=== PATIENT | female | born 1980 | race Caucasian/White ===

== ENCOUNTER 2020-07-11 23:08 | Inpatient (IN) | payer OTHER, SELFPAY ==
--- NOTE | ~2020-07-11 | US_ITS ---
EXAMINATION: US ABDOMEN COMPLETE CLINICAL INFORMATION: Right upper quadrant and right flank pain. COMPARISON: 09/04/2016 TECHNIQUE: Real-time imaging of the abdominal viscera. FINDINGS: PANCREAS: The visualized proximal portion of the pancreas is unremarkable. The distal portion is obscured secondary to overlying bowel gas. ABDOMINAL AORTA: The proximal, mid, and distal segments are normal in caliber. INFERIOR VENA CAVA: Visualized portions are normal. LIVER: The liver is normal in size. The liver contour is normal. Parenchymal echogenicity is normal. No focal hepatic lesion. There is no intrahepatic biliary duct dilatation seen. GALLBLADDER: The gallbladder is physiologically distended without evidence of stones, sludge, polyps, wall thickening or pericholecystic fluid. COMMON BILE DUCT: Normal in caliber measuring 0.4 cm in diameter. RIGHT KIDNEY: No hydronephrosis. No renal calculi or focal parenchymal lesions. The kidney measures 12.4 cm in maximum dimension. LEFT KIDNEY: No hydronephrosis. There are mid and lower pole calculi measuring up to 0.5 cm each. The kidney measures 12.8 cm in maximum dimension. SPLEEN: Normal. The spleen measures 10.6 cm in maximum dimension. FREE FLUID: None. US/US abdomen complete IMPRESSION: No acute findings identified. Left renal calculi without hydronephrosis.
[2020-07-11 23:43] VITALS: BP 121/41; PULSE 126; RESP 18; TEMP 38.1; O2SAT 100; BMI 24.5
[2020-07-12] VITALS (8 sets, daily range): BP systolic 93–117; BP diastolic 45–68; PULSE 56–84; RESP 16–18; TEMP 35.9–37.3; O2SAT 97–100
[2020-07-12 00:32] LABS: Glucose Urine UA NEG (NEG); Leukocyte Esterase Urine TRACE (NEG); Nitrite Urine POS (NEG); Urine Blood 3+ (NEG); Urine Ketones >=80 MG/DL (NEG); Urine Protein TRACE MG/DL (NEG-TRACE)
[2020-07-12 00:45] LABS: Appearance Urine HAZY; Color Urine YELLOW
[2020-07-12 00:51] LABS: Bacteria Urine 4+ /LPF; Mucus Urine 1+ /LPF; Squamous Epithelial Cell Urine 1+ /LPF
[2020-07-12 00:52] LABS: UPreg QC Valid YES; Urine Pregnancy NEGATIVE (NEGATIVE)
--- NOTE | 2020-07-12 01:57 | ED.ABDPAIN ---
HPI - Abdominal Pain General Chief Complaint: Abdominal Pain Stated Complaint: Abdominal pain Time Seen by Provider: 07/12/20 01:20 Source: patient Mode of arrival: ambulatory Limitations: no limitations History of Present Illness MD elicited complaint: abdominal pain and flank pain Pertinent past history: past UTI Onset (ago): day(s) (1) Pain Consistency: constant Location: RUQ and R flank Severity: moderate Quality: aching and dull Radiation: none Migration to: no migration Exacerbating factors: movement Relieving factors: nothing Associated symptoms: nausea, vomiting, fever and chills Related Data Allergies Allergy/AdvReac Type Severity Reaction Status Date / Time No Known Allergies Allergy Verified 07/11/20 23:42 [No Known Allergies*] Review of Systems Review of Systems Constitutional : No Weight loss, pos Fever, pos Chills ENT/Mouth : No sore throat, No Rhinorrhea Eyes: No Swelling, No Redness Cardiovascular : No Chest Pain, No SOB, NoEdema Respiratory : No Cough, No Sputum, No Wheezing Gastrointestinal : Positive Nausea, Positive Vomiting, no Diarrhea, positive abdominal Pain, No Hematochezia, No Melena Genitourinary : No Dysuria, No Urinary Frequency, No Hematuria, No Urgency Musculoskeletal : No joint pain, No Myalgias, No Joint Swelling Skin : No Skin Lesions, No rash Neuro : No Weakness, No Numbness, No Dizziness, No Headache Psych : No Anxiety/Panic, No Depression Heme/Lymph: No Bruising, No Lymphadenopathy Endocrine : No Polyuria, No Polydipsia All other systems reviewed and are negative. Physical Exam Vital Signs: Vital Signs: Last Vital Signs Temp 100.5 F H 07/11/20 23:43 Pulse 126 H 07/11/20 23:43 Resp 18 07/11/20 23:43 BP 121/41 L 07/11/20 23:43 Pulse Ox 100 07/11/20 23:43 Body Mass Index 24.5 Appearance: Alert. Oriented X3. Mild acute distress. Anxious Eyes: Pupils equal, round and reactive to light. ENT: Pharynx normal. Neck: Normal inspection. Neck supple. CVS: tachycardic, heart rate and rhythm. Pulses normal. Respiratory: No respiratory distress. Breath sounds normal. Abdomen: Soft and mild RUQ ttp no rebound or guarding Back: severe R CVA ttp Skin: Skin warm and dry. Normal skin color. Normal skin turgor. Extremities: No lower extremity edema. No calf ttp Neuro: Oriented X 3. No motor deficit. No sensory deficit. Course Course Course Narrative: patient with pyelonephritis still nauseated no stone, given ceftriaxone - given presentation will admit for further workup, doubt she will be able to tolerate oral antibiotics MDM - Abdominal Pain MDM Narrative Medical decision making narrative: 39 yo female with no sig PMH here with fevers, UTI RUQ and R flank pain at this time will need labs, cultures, US of abdomen for renal colic and biliary colic, IV ceftriaxone and supportive medications, dispo per results and findings, likely pyelonephritis Lab Data Result diagrams: 07/12/20 03:05 07/12/20 03:05 Labs: Lab Results 07/11/20 07/11/20 07/12/20 Range/Units 23:53 23:53 03:05 WBC 17.5 H (4.8-10.8) X10*3/uL RBC 4.65 (4.20-5.50) X10*6/uL Hgb 14.2 (12.0-16.0) g/dl Hct 41.9 (37-47) % MCV 90.1 (80-98) fL MCH 30.5 (27.0-33.0) pg MCHC 33.9 (31.0-35.0) g/dl RDW 12.5 (11.0-16.0) % Plt Count 231 (160-400) X10*3/uL MPV 9.7 (9.4-12.3) fL Immature Gran % (Auto) 0.5 H (0.0-0.4) % Neut % (Auto) 81.5 H (45-73) % Lymph % (Auto) 10.5 L (20-40) % [place] % (Auto) 7.3 (2-11) % Eos % (Auto) 0.1 (0-4) % Baso % (Auto) 0.1 (0-2) % Lymph # (Auto) 1.8 (1.2-4.9) X10*3/uL [place] # (Auto) 1.3 H (0.1-1.2) X10*3/uL Eos # (Auto) 0.0 (0.0-0.4) X10*3/uL Baso # (Auto) 0.0 (0.0-0.2) X10*3/uL Abs Immat Gran (auto) 0.08 H (0.00-0.03) X10*3/uL Absolute Neuts (auto) 14.3 H (2.0-8.3) X10*3/uL Absolute Nucleated RBC 0.000 (0.0-0.012) X10*3/uL Nucleated RBC % (auto) 0.0 (0.0-0.2) /100WBC Hold Blue Top Sodium (135-145) mmol/L Potassium (3.3-5.1) mmol/L Chloride (96-108) mmol/L Carbon Dioxide (22-29) mmol/L Anion Gap (12-20) BUN (9-16) mg/dL Creatinine (0.5-1.4) mg/dL Estim Creat Clear Calc Estimated GFR Random Glucose (60-115) mg/dL Lactic Acid (0.5-2.0) mmol/L Calcium (8.4-10.2) mg/dL Magnesium (1.6-2.6) mg/dL Total Bilirubin (0.0-1.0) mg/dL Direct Bilirubin (0.0-0.5) mg/dL AST (5-31) U/L ALT (0-31) U/L Alkaline Phosphatase (39-117) U/L Total Protein (6.5-8.0) g/dL Albumin (3.5-5.0) g/dL Lipase (8-78) U/L Urine Color YELLOW Urine Appearance HAZY Urine pH 7.0 (5.0-8.0) Ur Specific [place] 1.020 (1.005-1.025) Urine Protein TRACE (NEG-TRACE) MG/DL Urine Glucose (UA) NEG (NEG) MG/DL Urine Ketones >=80 (NEG) MG/DL Urine Blood 3+ H (NEG) Urine Nitrite POS H (NEG) Ur Leukocyte Esterase TRACE H (NEG) Urine RBC 10-14 H (0) /HPF Urine WBC 10-14 H (0-4) /HPF Ur Squamous Epith Cells 1+ /LPF Urine Bacteria 4+ /LPF Urine Mucus 1+ /LPF Urine Test NEGATIVE (NEGATIVE) COVID-19 ([facility]ASH) (Negative) COVID-19 Clin Com 07/12/20 07/12/20 07/12/20 Range/Units 03:05 03:05 03:05 WBC (4.8-10.8) X10*3/uL RBC (4.20-5.50) X10*6/uL Hgb (12.0-16.0) g/dl Hct (37-47) % MCV (80-98) fL MCH (27.0-33.0) pg MCHC (31.0-35.0) g/dl RDW (11.0-16.0) % Plt Count (160-400) X10*3/uL MPV (9.4-12.3) fL Immature Gran % (Auto) (0.0-0.4) % Neut % (Auto) (45-73) % Lymph % (Auto) (20-40) % [place] % (Auto) (2-11) % Eos % (Auto) (0-4) % Baso % (Auto) (0-2) % Lymph # (Auto) (1.2-4.9) X10*3/uL [place] # (Auto) (0.1-1.2) X10*3/uL Eos # (Auto) (0.0-0.4) X10*3/uL Baso # (Auto) (0.0-0.2) X10*3/uL Abs Immat Gran (auto) (0.00-0.03) X10*3/uL Absolute Neuts (auto) (2.0-8.3) X10*3/uL Absolute Nucleated RBC (0.0-0.012) X10*3/uL Nucleated RBC % (auto) (0.0-0.2) /100WBC Hold Blue Top SEE NOTE Sodium 138 (135-145) mmol/L Potassium 3.3 (3.3-5.1) mmol/L Chloride 102 (96-108) mmol/L Carbon Dioxide 24 (22-29) mmol/L Anion Gap 15 (12-20) BUN 10 (9-16) mg/dL Creatinine 0.72 (0.5-1.4) mg/dL Estim Creat Clear Calc 92.3 Estimated GFR > 60 Random Glucose 114 (60-115) mg/dL Lactic Acid 0.8 (0.5-2.0) mmol/L Calcium 9.4 (8.4-10.2) mg/dL Magnesium (1.6-2.6) mg/dL Total Bilirubin (0.0-1.0) mg/dL Direct Bilirubin (0.0-0.5) mg/dL AST (5-31) U/L ALT (0-31) U/L Alkaline Phosphatase (39-117) U/L Total Protein (6.5-8.0) g/dL Albumin (3.5-5.0) g/dL Lipase (8-78) U/L Urine Color Urine Appearance Urine pH (5.0-8.0) Ur Specific [place] (1.005-1.025) Urine Protein (NEG-TRACE) MG/DL Urine Glucose (UA) (NEG) MG/DL Urine Ketones (NEG) MG/DL Urine Blood (NEG) Urine Nitrite (NEG) Ur Leukocyte Esterase (NEG) Urine RBC (0) /HPF Urine WBC (0-4) /HPF Ur Squamous Epith Cells /LPF Urine Bacteria /LPF Urine Mucus /LPF Urine Test (NEGATIVE) COVID-19 ([facility]) (Negative) COVID-19 Clin Com 07/12/20 07/12/20 07/12/20 Range/Units 03:05 03:05 03:06 WBC (4.8-10.8) X10*3/uL RBC (4.20-5.50) X10*6/uL Hgb (12.0-16.0) g/dl Hct (37-47) % MCV (80-98) fL MCH (27.0-33.0) pg MCHC (31.0-35.0) g/dl RDW (11.0-16.0) % Plt Count (160-400) X10*3/uL MPV (9.4-12.3) fL Immature Gran % (Auto) (0.0-0.4) % Neut % (Auto) (45-73) % Lymph % (Auto) (20-40) % [place] % (Auto) (2-11) % Eos % (Auto) (0-4) % Baso % (Auto) (0-2) % Lymph # (Auto) (1.2-4.9) X10*3/uL [place] # (Auto) (0.1-1.2) X10*3/uL Eos # (Auto) (0.0-0.4) X10*3/uL Baso # (Auto) (0.0-0.2) X10*3/uL Abs Immat Gran (auto) (0.00-0.03) X10*3/uL Absolute Neuts (auto) (2.0-8.3) X10*3/uL Absolute Nucleated RBC (0.0-0.012) X10*3/uL Nucleated RBC % (auto) (0.0-0.2) /100WBC Hold Blue Top Sodium (135-145) mmol/L Potassium (3.3-5.1) mmol/L Chloride (96-108) mmol/L Carbon Dioxide (22-29) mmol/L Anion Gap (12-20) BUN (9-16) mg/dL Creatinine (0.5-1.4) mg/dL Estim Creat Clear Calc Estimated GFR Random Glucose (60-115) mg/dL Lactic Acid (0.5-2.0) mmol/L Calcium (8.4-10.2) mg/dL Magnesium 2.1 (1.6-2.6) mg/dL Total Bilirubin 0.8 (0.0-1.0) mg/dL Direct Bilirubin 0.3 (0.0-0.5) mg/dL AST 13 (5-31) U/L ALT 11 (0-31) U/L Alkaline Phosphatase 94 (39-117) U/L Total Protein 8.1 H (6.5-8.0) g/dL Albumin 4.8 (3.5-5.0) g/dL Lipase 7 L (8-78) U/L Urine Color Urine Appearance Urine pH (5.0-8.0) Ur Specific [place] (1.005-1.025) Urine Protein (NEG-TRACE) MG/DL Urine Glucose (UA) (NEG) MG/DL Urine Ketones (NEG) MG/DL Urine Blood (NEG) Urine Nitrite (NEG) Ur Leukocyte Esterase (NEG) Urine RBC (0) /HPF Urine WBC (0-4) /HPF Ur Squamous Epith Cells /LPF Urine Bacteria /LPF Urine Mucus /LPF Urine Test (NEGATIVE) COVID-19 ([facility]) Negative (Negative) COVID-19 Clin Com See Note Discharge Plan Discharge Clinical Impression: Pyelonephritis, Fever, Leukocytosis, Nausea & vomiting Patient Disposition: Ad[facility] As [facility] Past Medical History Attestation statement: The following information was validated with the patient. Medical History (Updated 07/12/20 @ 04:17 by Rika Rose DO) No active medical problems Social History Social History (Updated 07/12/20 @ 02:40 by Rika Rose DO) Smoking Status: Unknown if ever smoked Use of substances other than those prescribed or required for medical reasons: No Advance Directives: No
[2020-07-12 03:14] LABS: MANUAL DIFF FLAG NO
[2020-07-12 03:15] LABS: Basophils Percent Auto 0.1 % (0-2); Eosinophils Percent Auto 0.1 % (0-4); Hematocrit 41.9 % (37-47); Hemoglobin 14.2 g/dl (12.0-16.0); Imm Gran Abs Auto 0.08 X10*3/uL (0.00-0.03); Imm Gran Pct Auto 0.5 % (0.0-0.4); Lymphocytes Absolute Auto 1.8 X10*3/uL (1.2-4.9); Lymphocytes Percent Auto 10.5 % (20-40); Mean Corpuscular HGB Conc 33.9 g/dl (31.0-35.0); Mean Corpuscular Hemoglobin 30.5 pg (27.0-33.0); Mean Corpuscular Volume 90.1 fL (80-98); Mean Platelet Volume 9.7 fL (9.4-12.3); Monocytes Absolute Auto 1.3 X10*3/uL (0.1-1.2); Monocytes Percent Auto 7.3 % (2-11); Neutrophils Absolute Auto 14.3 X10*3/uL (2.0-8.3); Neutrophils Percent Auto 81.5 % (45-73); Platelet Count 231 X10*3/uL (160-400); Red Blood Count 4.65 X10*6/uL (4.20-5.50); Red Cell Distribution Width 12.5 % (11.0-16.0); White Blood Count 17.5 X10*3/uL (4.8-10.8)
[2020-07-12] MEDS: cefTRIAXone sodium 1 GM in 0.9 % Sodium Chloride 50 ML IV ×2 (03:15→20:57)
[2020-07-12] MEDS: Ketorolac Tromethamine 30 MG/ML VIAL IVPUSH (03:16)
[2020-07-12] MEDS: ondansetron HCL 4 MG/2 ML VIAL IVPUSH ×2 (03:16→19:37)
[2020-07-12] MEDS: Acetaminophen 325 MG TABLET 650 MG PO ×3 (03:17→20:56)
[2020-07-12] MEDS: 0.9 % Sodium Chloride 1,000 ML 999 ML IVCONT ×2 (03:18)
--- NOTE | 2020-07-12 03:31 | PC.NURSE ---
PT RETURNS FROM U/S. PT IN NAD. PT AWAKE, RESPIRATIONS EASY, N/L. SKIN W/D. IV EST TO RAC, LABS DRAWN TO LAB. PT MEDICATED PER EMAR FOR PAIN AND NAUSEA. PT AWAITING PENDING ORDERS. WILL CONTINUE TO MONITOR PT.
[2020-07-12 03:34] LABS: Lactic Acid 0.8 mmol/L (0.5-2.0)
[2020-07-12 03:39] LABS: Alanine Aminotransferase 11 U/L (0-31); Albumin Level 4.8 g/dL (3.5-5.0); Alkaline Phosphatase 94 U/L (39-117); Anion Gap 15 (12-20); Aspartate Amino Transferase 13 U/L (5-31); Bilirubin Direct 0.3 mg/dL (0.0-0.5); Bilirubin Total 0.8 mg/dL (0.0-1.0); Blood Urea Nitrogen 10 mg/dL (9-16); Calcium 9.4 mg/dL (8.4-10.2); Carbon Dioxide 24 mmol/L (22-29); Chloride 102 mmol/L (96-108); Creatinine Clr Calc Pharmacy 92.3; Estimated Glomerular Filt Rate > 60; Glucose Random 114 mg/dL (60-115); Lipase 7 U/L (8-78); Magnesium 2.1 mg/dL (1.6-2.6); Potassium 3.3 mmol/L (3.3-5.1); Sodium 138 mmol/L (135-145); Total Protein 8.1 g/dL (6.5-8.0)
[2020-07-12 04:10] LABS: COVID-19 Test Negative (Negative); IDNOW Serial# 9DD0AD1C
--- NOTE | 2020-07-12 04:55 | PM.IMHP ---
History of Present Illness Date of Service: 07/12/20 Chief Complaint: Pain This is a 39-year-old female with past medical history of gestational diabetes presents to the hospital with complaints of right-sided flank and abdominal pain. Patient reports that the pain is on her left side radiating to the back, associated with chills and fever, nausea, vomiting, urinary frequency, urgency, dysuria. The pain started 2 days ago and have worsened. Pain is 7/10, worse with movement and deep inspiration.. Also experiencing dizziness, and low appetite. On arrival to the ED hemodynamically stable with a temperature of a 100.5?, pulse rate of 126, respiratory rate of 18, blood pressure 121/41, satting 100% on room air. Labs are significant for WBC count of 17.5, UA that is positive for nitrites, leukocyte Estrace, WBC, Abdominal ultrasound demonstrating left renal calculi without hydronephrosis Patient will be admitted for further management Review of Systems Review of Systems: Yes all other systems are reviewed and are negative [facility] Medical History (Updated 07/12/20 @ 05:00 by Cody Palafox MD) Gestational diabetes No active medical problems Social History Smoking Status: Unknown if ever smoked Smoked in Last 30 Days: No Use of substances other than those prescribed or required for medical reasons: No Advance Directives: No Meds Allergies Allergy/AdvReac Type Severity Reaction Status Date / Time No Known Allergies Allergy Verified 07/11/20 23:42 [No Known Allergies*] Home Medications Medication Instructions Recorded Confirmed Last Taken Type No Known Home Meds 07/12/20 07/12/20 Unknown History Physical Exam Vital Signs and Narrative: Vital Signs: Last Vital Signs Temp 99.1 F 07/12/20 04:18 Pulse 70 07/12/20 04:33 Resp 18 07/12/20 04:18 BP 108/59 L 07/12/20 04:33 Pulse Ox 99 07/12/20 04:33 Body Mass Index 24.5 Const: General: cooperative and no acute distress Orientation/consciousness: patient oriented x3 Eyes: General: appearance normal, both eyes and all related structures Resp: Effort & Inspection: normal respiratory effort and able to speak in complete sentences Cardio: Rate: regular rate Rhythm: regular rhythm GI: Palpation (GI): Soft to palpation Auscultation: normal bowel sounds : Other: Right-sided CVA tenderness Skin: General skin exam: no rashes or lesions noted Neuro: General: patient oriented x3 Cognition (Neuro): normal cognition Extrem: General: Yes normal to inspection and Yes no pedal edema Results Labs CBC and Chem 7: 07/12/20 03:05 07/12/20 03:05 Labs: Laboratory Results - last 24 hr 07/11/20 07/11/20 07/12/20 23:53 23:53 03:05 MCV 90.1 MCH 30.5 MCHC 33.9 RDW 12.5 Plt Count 231 MPV 9.7 Immature Gran % (Auto) 0.5 H Neut % (Auto) 81.5 H Lymph % (Auto) 10.5 L [place] % (Auto) 7.3 Eos % (Auto) 0.1 Baso % (Auto) 0.1 Lymph # (Auto) 1.8 [place] # (Auto) 1.3 H Eos # (Auto) 0.0 Baso # (Auto) 0.0 Abs Immat Gran (auto) 0.08 H Absolute Neuts (auto) 14.3 H Absolute Nucleated RBC 0.000 Nucleated RBC % (auto) 0.0 Hold Blue Top Anion Gap Estim Creat Clear Calc Estimated GFR Random Glucose Lactic Acid Calcium Magnesium Total Bilirubin Direct Bilirubin AST ALT Alkaline Phosphatase Total Protein Albumin Lipase Urine Color YELLOW Urine Appearance HAZY Urine pH 7.0 Ur Specific [place] 1.020 Urine Protein TRACE Urine Glucose (UA) NEG Urine Ketones >=80 Urine Blood 3+ H Urine Nitrite POS H Ur Leukocyte Esterase TRACE H Urine RBC 10-14 H Urine WBC 10-14 H Ur Squamous Epith Cells 1+ Urine Bacteria 4+ Urine Mucus 1+ Urine Test NEGATIVE COVID-19 (KASH) COVID-19 Clin Com 07/12/20 07/12/20 07/12/20 03:05 03:05 03:05 MCV MCH MCHC RDW Plt Count MPV Immature Gran % (Auto) Neut % (Auto) Lymph % (Auto) [place] % (Auto) Eos % (Auto) Baso % (Auto) Lymph # (Auto) [place] # (Auto) Eos # (Auto) Baso # (Auto) Abs Immat Gran (auto) Absolute Neuts (auto) Absolute Nucleated RBC Nucleated RBC % (auto) Hold Blue Top SEE NOTE Anion Gap 15 Estim Creat Clear Calc 92.3 Estimated GFR > 60 Random Glucose 114 Lactic Acid 0.8 Calcium 9.4 Magnesium Total Bilirubin Direct Bilirubin AST ALT Alkaline Phosphatase Total Protein Albumin Lipase Urine Color Urine Appearance Urine pH Ur Specific [place] Urine Protein Urine Glucose (UA) Urine Ketones Urine Blood Urine Nitrite Ur Leukocyte Esterase Urine RBC Urine WBC Ur Squamous Epith Cells Urine Bacteria Urine Mucus Urine Test COVID-19 (KASH) COVID-19 [employer] Com 07/12/20 07/12/20 07/12/20 03:05 03:05 03:06 MCV MCH MCHC RDW Plt Count MPV Immature Gran % (Auto) Neut % (Auto) Lymph % (Auto) [place] % (Auto) Eos % (Auto) Baso % (Auto) Lymph # (Auto) [place] # (Auto) Eos # (Auto) Baso # (Auto) Abs Immat Gran (auto) Absolute Neuts (auto) Absolute Nucleated RBC Nucleated RBC % (auto) Hold Blue Top Anion Gap Estim Creat Clear Calc Estimated GFR Random Glucose Lactic Acid Calcium Magnesium 2.1 Total Bilirubin 0.8 Direct Bilirubin 0.3 AST 13 ALT 11 Alkaline Phosphatase 94 Total Protein 8.1 H Albumin 4.8 Lipase 7 L Urine Color Urine Appearance Urine pH Ur Specific [place] Urine Protein Urine Glucose (UA) Urine Ketones Urine Blood Urine Nitrite Ur Leukocyte Esterase Urine RBC Urine WBC Ur Squamous Epith Cells Urine Bacteria Urine Mucus Urine Test COVID-19 (KASH) Negative COVID-19 Clin Com See Note Imaging Radiologist's Impressions: Impressions Abdomen Ultrasound 07/12/20 02:03 IMPRESSION: No acute findings identified. Left renal calculi without hydronephrosis. Assessment and Plan (1) Sepsis: Status: Acute (2) Pyelonephritis: Status: Acute (3) Nausea & vomiting: Qualifiers: Vomiting Intractability: intractable Vomiting type: unspecified Qualified Code(s): R11.2 - Nausea with vomiting, unspecified Status: Acute (4) Leukocytosis: Qualifiers: Leukocytosis type: unspecified Qualified Code(s): D72.829 - Elevated white blood cell count, unspecified Status: Acute (5) Fever: Qualifiers: Fever type: unspecified Qualified Code(s): R50.9 - Fever, unspecified Status: Acute (6) UTI (urinary tract infection): Status: Acute 39-year-old female who presents to the hospital with abdominal pain found to have UTI/pyelonephritis # sepsis - secondary to UTI/pyelo - patient has leukocytosis, tachycardic - normal lactic acid, no hypotension - will start on IV antibiotics - OV fluids -follow cultures # UTI/pyelonephritis - UA positive for leukocyte esterase, nitrites, WBC, positive CVA tenderness on the right - started on IV antibiotics - follow cultures # leukocytosis - secondary to above - follow CBC # fever - secondary to above - Tylenol p.r.n. # nausea vomiting - secondary to above - p.r.n. antiemetic - IV fluids DVT prophylaxis: Lovenox
[2020-07-12] MEDS: Lactated Ringers 1,000 ML 100 ML IVCONT ×2 (09:09→17:07)
[2020-07-12] MEDS: oxyCODONE HCl Immed Release 5 MG TABLET PO ×2 (09:10→15:27)
--- NOTE | 2020-07-12 09:49 | MHC.CM.PN ---
PATIENT LIVES WITH HER SON, WHO IS CURRENTLY IN THE CARE OF PATIENT'S MOTHER. PATIENT IS INDEPENDENT WITH ALL ADLS. NO DME OR VNA SERVICES SHE ASSIGNS TWO HCP AGENTS (MOM AND SISTER) COPY IN CHART. PCP IS AT ADULT [facility]IC[facility] AT [facility]. UPDATE MADE TO CM OFFICE. PATIENT'S CAR IS IN THE LOT. SHE IS EXPECTED TO REMAIN INPATIENT FOR 48 HOURS. CASE MANAGEMENT FOLLOWING FOR ANY DISCHARGE PLANS.
--- NOTE | 2020-07-12 11:12 | HO.PM.IMPN ---
Subjective Subjective Date of Service: 07/12/20 Interval History: c/o chills, sweats, R flank pain no prior hx UTI Physical Exam Vital Signs: Vital Signs: Last Vital Signs Temp 96.7 F L 07/12/20 08:55 Pulse 63 07/12/20 08:55 Resp 18 07/12/20 08:55 BP 117/65 07/12/20 08:55 Pulse Ox 98 07/12/20 08:55 Body Mass Index 24.5 Gen: in no acute distress HEENT: sclera anicteric, moist mucus membranes Neck: supple Lungs: clear to auscultation bilaterally Heart: regular rate and rhythm, no murmurs Abd: soft, non-tender, non-distended : R CVA tenderness Ext: no edema Skin: warm/well-perfused Neuro: alert and oriented x3, no focal findings Psych: appropriate affect Objective Data Current Medications Generic Name Dose Route Start Last Admin Trade Name Freq PRN Reason Stop Dose Admin Acetaminophen 650 mg 07/12/20 08:57 07/12/20 09:13 Acetaminophen 325 Mg Tablet PO 650 mg Q6H PRN Administration Pain, Mild (Pain Scale 1-3) Docusate Sodium 100 mg 07/12/20 08:57 Docusate Sodium 100 Mg Capsule PO DAILY PRN Constipation Enoxaparin Sodium 40 mg 07/12/20 08:57 07/12/20 09:14 Enoxaparin Sodium 40 Mg/0.4 Ml Syringe SUBCUT Not Given Q24H TANGELA Lactated Ringer's 1,000 mls @ 100 mls/hr 07/12/20 05:15 07/12/20 09:09 Lr IVCONT 100 mls/hr .Q10H TANGELA Administration Ceftriaxone Sodium 1 gm/ 50 mls @ 100 mls/hr 07/12/20 21:00 Sodium Chloride IV Q24H TANGELA Ondansetron HCl 4 mg 07/12/20 08:57 Ondansetron Hcl 4 Mg/2 Ml Vial IVPUSH Q8H PRN Nausea and Vomiting Oxycodone HCl 5 mg 07/12/20 04:55 07/12/20 09:10 Oxycodone Hcl Immed Release 5 Mg Tablet PO 5 mg Q4H PRN Administration Pain, Severe (Pain Scale 7-10) Sodium Chloride 3 ml 07/12/20 08:57 07/12/20 09:09 0.9 % Sodium Chloride Flush 3 Ml Syringe [facility]USH [facility] CBC & Chem 7: 07/12/20 03:05 07/12/20 03:05 Labs: Laboratory Results - last 24 hr 07/11/20 07/11/20 07/12/20 23:53 23:53 03:05 WBC 17.5 H RBC 4.65 Hgb 14.2 Hct 41.9 MCV 90.1 MCH 30.5 MCHC 33.9 RDW 12.5 Plt Count 231 MPV 9.7 Immature Gran % (Auto) 0.5 H Neut % (Auto) 81.5 H Lymph % (Auto) 10.5 L [place] % (Auto) 7.3 Eos % (Auto) 0.1 Baso % (Auto) 0.1 Lymph # (Auto) 1.8 [place] # (Auto) 1.3 H Eos # (Auto) 0.0 Baso # (Auto) 0.0 Abs Immat Gran (auto) 0.08 H Absolute Neuts (auto) 14.3 H Absolute Nucleated RBC 0.000 Nucleated RBC % (auto) 0.0 Hold Blue Top Sodium Potassium Chloride Carbon Dioxide Anion Gap BUN Creatinine Estim Creat Clear Calc Estimated GFR Random Glucose Lactic Acid Calcium Magnesium Total Bilirubin Direct Bilirubin AST ALT Alkaline Phosphatase Total Protein Albumin Lipase Urine Color YELLOW Urine Appearance HAZY Urine pH 7.0 Ur Specific [place] 1.020 Urine Protein TRACE Urine Glucose (UA) NEG Urine Ketones >=80 Urine Blood 3+ H Urine Nitrite POS H Ur Leukocyte Esterase TRACE H Urine RBC 10-14 H Urine WBC 10-14 H Ur Squamous Epith Cells 1+ Urine Bacteria 4+ Urine Mucus 1+ Urine Test NEGATIVE COVID-19 ([facility]ASH) COVID-19 Clin Com 07/12/20 07/12/20 07/12/20 03:05 03:05 03:05 WBC RBC Hgb Hct MCV MCH MCHC RDW Plt Count MPV Immature Gran % (Auto) Neut % (Auto) Lymph % (Auto) [place] % (Auto) Eos % (Auto) Baso % (Auto) Lymph # (Auto) [place] # (Auto) Eos # (Auto) Baso # (Auto) Abs Immat Gran (auto) Absolute Neuts (auto) Absolute Nucleated RBC Nucleated RBC % (auto) Hold Blue Top SEE NOTE Sodium 138 Potassium 3.3 Chloride 102 Carbon Dioxide 24 Anion Gap 15 BUN 10 Creatinine 0.72 Estim Creat Clear Calc 92.3 Estimated GFR > 60 Random Glucose 114 Lactic Acid 0.8 Calcium 9.4 Magnesium Total Bilirubin Direct Bilirubin AST ALT Alkaline Phosphatase Total Protein Albumin Lipase Urine Color Urine Appearance Urine pH Ur Specific [place] Urine Protein Urine Glucose (UA) Urine Ketones Urine Blood Urine Nitrite Ur Leukocyte Esterase Urine RBC Urine WBC Ur Squamous Epith Cells Urine Bacteria Urine Mucus Urine Test COVID-19 (KASH) COVID-19 Clin Com 07/12/20 07/12/20 07/12/20 03:05 03:05 03:06 WBC RBC Hgb Hct MCV MCH MCHC RDW Plt Count MPV Immature Gran % (Auto) Neut % (Auto) Lymph % (Auto) [place] % (Auto) Eos % (Auto) Baso % (Auto) Lymph # (Auto) [place] # (Auto) Eos # (Auto) Baso # (Auto) Abs Immat Gran (auto) Absolute Neuts (auto) Absolute Nucleated RBC Nucleated RBC % (auto) Hold Blue Top Sodium Potassium Chloride Carbon Dioxide Anion Gap BUN Creatinine Estim Creat Clear Calc Estimated GFR Random Glucose Lactic Acid Calcium Magnesium 2.1 Total Bilirubin 0.8 Direct Bilirubin 0.3 AST 13 ALT 11 Alkaline Phosphatase 94 Total Protein 8.1 H Albumin 4.8 Lipase 7 L Urine Color Urine Appearance Urine pH Ur Specific [place] Urine Protein Urine Glucose (UA) Urine Ketones Urine Blood Urine Nitrite Ur Leukocyte Esterase Urine RBC Urine WBC Ur Squamous Epith Cells Urine Bacteria Urine Mucus Urine Test COVID-19 (KASH) Negative COVID-19 Clin Com See Note Assessment and Plan (1) Sepsis: Status: Acute (2) Pyelonephritis: Status: Acute Assessment and Plan: hospital d#1 39yo F with hx GDM, nephrolithiasis admitted with sepsis from pyelonephritis # pyelonephritis - IV ceftriaxone, follow BCx + UCx [latter not sent from ED- will re-order] # nephrolithiasis - on opposite side from pyelonephritis. IV hydration, urology f/u as outpt # hx GDM - check A1c to screen for overt DM # VTE ppx - LMWH
[2020-07-13] VITALS (7 sets, daily range): BP systolic 96–121; BP diastolic 53–69; PULSE 53–85; RESP 16–20; TEMP 35.9–36.6; O2SAT 97–100
[2020-07-13] MEDS: Lactated Ringers 1,000 ML 100 ML IVCONT (03:50)
[2020-07-13] MEDS: Acetaminophen 325 MG TABLET 650 MG PO ×3 (03:54→18:05)
[2020-07-13 04:58] LABS: MANUAL DIFF FLAG NO
[2020-07-13 05:09] LABS: Basophils Percent Auto 0.2 % (0-2); Eosinophils Absolute Auto 0.1 X10*3/uL (0.0-0.4); Eosinophils Percent Auto 0.9 % (0-4); Hematocrit 35.8 % (37-47); Hemoglobin 11.9 g/dl (12.0-16.0); Imm Gran Abs Auto 0.04 X10*3/uL (0.00-0.03); Imm Gran Pct Auto 0.4 % (0.0-0.4); Lymphocytes Absolute Auto 2.3 X10*3/uL (1.2-4.9); Lymphocytes Percent Auto 21.8 % (20-40); Mean Corpuscular HGB Conc 33.2 g/dl (31.0-35.0); Mean Corpuscular Hemoglobin 30.3 pg (27.0-33.0); Mean Corpuscular Volume 91.1 fL (80-98); Mean Platelet Volume 9.8 fL (9.4-12.3); Monocytes Absolute Auto 1.2 X10*3/uL (0.1-1.2); Monocytes Percent Auto 11.5 % (2-11); Neutrophils Absolute Auto 6.8 X10*3/uL (2.0-8.3); Neutrophils Percent Auto 65.2 % (45-73); Platelet Count 182 X10*3/uL (160-400); Red Blood Count 3.93 X10*6/uL (4.20-5.50); Red Cell Distribution Width 12.4 % (11.0-16.0); White Blood Count 10.3 X10*3/uL (4.8-10.8)
[2020-07-13 05:23] LABS: Estimated Average Glucose 91 mg/dL; Hemoglobin A1c % 4.8 %
[2020-07-13 05:24] LABS: Anion Gap 13 (12-20); Blood Urea Nitrogen 7 mg/dL (9-16); Calcium 8.3 mg/dL (8.4-10.2); Carbon Dioxide 24 mmol/L (22-29); Chloride 106 mmol/L (96-108); Creatinine Clr Calc Pharmacy 118.7; Estimated Glomerular Filt Rate > 60; Glucose Random 86 mg/dL (60-115); Potassium 3.8 mmol/L (3.3-5.1); Sodium 139 mmol/L (135-145)
[2020-07-13] MEDS: ondansetron HCL 4 MG/2 ML VIAL IVPUSH (07:28)
--- NOTE | 2020-07-13 09:52 | HO.PM.IMPN ---
Subjective Subjective Date of Service: 07/13/20 Interval History: R flank pain improved, chills/sweats improved, appetite improved Physical Exam Vital Signs: Vital Signs: Last Vital Signs Temp 97.9 F 07/13/20 07:42 Pulse 56 07/13/20 07:42 Resp 18 07/13/20 07:42 BP 96/59 L 07/13/20 07:42 Pulse Ox 98 07/13/20 07:42 Body Mass Index 24.5 Gen: in no acute distress HEENT: sclera anicteric, moist mucus membranes Neck: supple Lungs: clear to auscultation bilaterally Heart: regular rate and rhythm, no murmurs Abd: soft, non-tender, non-distended : R CVA tenderness Ext: no edema Skin: warm/well-perfused Neuro: alert and oriented x3, no focal findings Psych: appropriate affect Objective Data Current Medications Generic Name Dose Route Start Last Admin Trade Name Freq PRN Reason Stop Dose Admin Acetaminophen 650 mg 07/12/20 08:57 07/13/20 03:54 Acetaminophen 325 Mg Tablet PO 650 mg Q6H PRN Administration Pain, Mild (Pain Scale 1-3) Docusate Sodium 100 mg 07/12/20 08:57 Docusate Sodium 100 Mg Capsule PO DAILY PRN Constipation Enoxaparin Sodium 40 mg 07/12/20 08:57 07/13/20 09:43 Enoxaparin Sodium 40 Mg/0.4 Ml Syringe SUBCUT Not Given Q24H [facility] Ceftriaxone Sodium 1 gm/ 50 mls @ 100 mls/hr 07/12/20 21:00 07/12/20 21:30 Sodium Chloride IV Infused Q24H [facility] Infusion Ondansetron HCl 4 mg 07/12/20 08:57 07/13/20 07:28 Ondansetron Hcl 4 Mg/2 Ml Vial IVPUSH 4 mg Q8H PRN Administration Nausea and Vomiting Oxycodone HCl 5 mg 07/12/20 04:55 07/12/20 15:27 Oxycodone Hcl Immed Release 5 Mg Tablet PO 5 mg Q4H PRN Administration Pain, Severe (Pain Scale 7-10) Sodium Chloride 3 ml 07/12/20 08:57 07/13/20 07:23 0.9 % Sodium Chloride Flush 3 Ml Syringe IVFLUSH Not Given QSHIFT [facility] Labs CBC & Chem 7: 07/13/20 04:21 07/13/20 04:21 Microbiology Microbiology Results: Microbiology 07/12/20 11:40 Urine clean catch - Clean Catch Midstream Urine Culture - Final No growth. 07/12/20 03:05 Blood - Venous Blood Culture - Preliminary No growth after 24 hours. 07/12/20 03:05 Blood - Venous Blood Culture - Preliminary No growth after 24 hours. Assessment and Plan (1) Sepsis: Status: Acute (2) Pyelonephritis: Status: Acute Assessment and Plan: hospital d#2 39yo F with hx GDM, nephrolithiasis admitted with sepsis from pyelonephritis # pyelonephritis - IV ceftriaxone d#2, follow BCx + UCx; WBC normalized # nephrolithiasis - on opposite side from pyelonephritis and not symptomatic. urology outpt f/u # hx GDM - A1c only 4.8, no overt DM2 # VTE ppx - LMWH # dispo - anticipate home tomorrow after susceptibilities back
[2020-07-13] MEDS: 0.9 % Sodium Chloride Flush 3 ML SYRINGE IVFLUSH ×2 (15:31→20:15)
[2020-07-13] MEDS: cefTRIAXone sodium 1 GM in 0.9 % Sodium Chloride 50 ML IV (20:15)
[2020-07-13] MEDS: SUMAtriptan succinate 50 MG TABLET PO (21:01)
[2020-07-14 03:45] VITALS: BP 104/65; PULSE 74; RESP 18; TEMP 36.5; O2SAT 98
[2020-07-14 07:43] VITALS: BP 113/72; PULSE 62; RESP 18; TEMP 36.7; O2SAT 99
[2020-07-14] MEDS: 0.9 % Sodium Chloride Flush 3 ML SYRINGE IVFLUSH (08:58)
--- NOTE | 2020-07-14 11:37 | MHC.CM.PN ---
HOME NO SERVICES. FAMILY TO TRANSPORT. RN AWARE OF PLAN.
[2020-07-14 11:52] VITALS: BP 119/61; PULSE 56; RESP 18; TEMP 36.2; O2SAT 100
--- NOTE | 2020-07-14 12:04 | PM.DS ---
DS: Providers Provider Date of Service: 07/14/20 Date of admission: 07/12/20 04:55 Primary care physician: Lucy Sanchez MD DS: Diagnosis Discharge Diagnosis (1) Sepsis: Status: Acute (2) Pyelonephritis: Status: Acute (3) Migraine: Status: Acute DS: Medications Discharge Medications Home Medications: Home Medications Medication Instructions Recorded Confirmed No Known Home Meds 07/12/20 07/12/20 Previous Rx's Medication Instructions Recorded cefdinir 300 mg PO BID #14 cap 07/14/20 sumatriptan succinate 50 mg PO DAILY MRX1 PRN #12 tab 07/14/20 DS: Summary Hospital Course Hospital Course: from admission history and physical, 07/12/20, by hospitalist Cody Palafox MD: This is a 39-year-old female with past medical history of gestational diabetes presents to the hospital with complaints of right-sided flank and abdominal pain. Patient reports that the pain is on her left side radiating to the back, associated with chills and fever, nausea, vomiting, urinary frequency, urgency, dysuria. The pain started 2 days ago and have worsened. Pain is 7/10, worse with movement and deep inspiration.. Also experiencing dizziness, and low appetite. On arrival to the ED hemodynamically stable with a temperature of a 100.5?, pulse rate of 126, respiratory rate of 18, blood pressure 121/41, satting 100% on room air. Labs are significant for WBC count of 17.5, UA that is positive for nitrites, leukocyte Estrace, WBC, Abdominal ultrasound demonstrating left renal calculi without hydronephrosis Patient will be admitted for further management She was admitted to the medical-surgical floor for sepsis from pyelonephritis. She was treated with IV ceftriaxone with resolution of the sepsis. Blood cultures were negative. Urine culture was negative but had unfortunate been sent after she had already gotten antibiotics. She was discharged on oral 3rd generation cephalosporin to complete 3 more days of therapy. She was screened for over diabetes given history of gestational diabetes mellitus but A1c was only 4.8. She was noted to have nephrolithiasis, but this was on the opposite side from the pyelonephritis and was not currently symptomatic; she could be referred to Urology as an outpatient. She was treated for migraines with sumatriptan successfully and was instructed to identify and avoid migraine triggers. She should follow-up with her new primary care doctor, Lucy Sanchez, in 1 week. Time Spent with Patient Time attestation: Total time spent providing and/or coordinating discharge services: 35 Discharge coordination time: Greater than 30 minutes Quality: Stroke Does the patient have a stroke diagnosis?: No Physical Exam Vital Signs: Vital Signs: Last Vital Signs Temp 97.1 F 07/14/20 11:52 Pulse 56 07/14/20 11:52 Resp 18 07/14/20 11:52 BP 119/61 07/14/20 11:52 Pulse Ox 100 07/14/20 11:52 Body Mass Index 24.5 Gen: in no acute distress HEENT: sclera anicteric, moist mucus membranes Neck: supple Lungs: clear to auscultation bilaterally Heart: regular rate and rhythm, no murmurs Abd: soft, non-tender, non-distended Ext: no edema Skin: warm/well-perfused Neuro: alert and oriented x3, no focal findings Psych: appropriate affect DS: Data Data Completed and Pending Completed studies during hospitalization [Text1]: Laboratory Results WBC 10.3 X10*3/uL (4.8-10.8) 07/13/20 04:21 RBC 3.93 X10*6/uL (4.20-5.50) L 07/13/20 04:21 Hgb 11.9 g/dl (12.0-16.0) L 07/13/20 04:21 Hct 35.8 % (37-47) L 07/13/20 04:21 MCV 91.1 fL (80-98) 07/13/20 04:21 MCH 30.3 pg (27.0-33.0) 07/13/20 04:21 MCHC 33.2 g/dl (31.0-35.0) 07/13/20 04:21 RDW 12.4 % (11.0-16.0) 07/13/20 04:21 Plt Count 182 X10*3/uL (160-400) 07/13/20 04:21 MPV 9.8 fL (9.4-12.3) 07/13/20 04:21 Immature Gran % (Auto) 0.4 % (0.0-0.4) 07/13/20 04:21 Neut % (Auto) 65.2 % (45-73) 07/13/20 04:21 Lymph % (Auto) 21.8 % (20-40) 07/13/20 04:21 [place] % (Auto) 11.5 % (2-11) H 07/13/20 04:21 Eos % (Auto) 0.9 % (0-4) 07/13/20 04:21 Baso % (Auto) 0.2 % (0-2) 07/13/20 04:21 Lymph # (Auto) 2.3 X10*3/uL (1.2-4.9) 07/13/20 04:21 [place] # (Auto) 1.2 X10*3/uL (0.1-1.2) 07/13/20 04:21 Eos # (Auto) 0.1 X10*3/uL (0.0-0.4) 07/13/20 04:21 Baso # (Auto) 0.0 X10*3/uL (0.0-0.2) 07/13/20 04:21 Abs Immat Gran (auto) 0.04 X10*3/uL (0.00-0.03) H 07/13/20 04:21 Absolute Neuts (auto) 6.8 X10*3/uL (2.0-8.3) 07/13/20 04:21 Absolute Nucleated RBC 0.000 X10*3/uL (0.0-0.012) 07/13/20 04:21 Nucleated RBC % (auto) 0.0 /100WBC (0.0-0.2) 07/13/20 04:21 Hold Blue Top SEE NOTE 07/12/20 03:05 Sodium 139 mmol/L (135-145) 07/13/20 04:21 Potassium 3.8 mmol/L (3.3-5.1) 07/13/20 04:21 Chloride 106 mmol/L (96-108) 07/13/20 04:21 Carbon Dioxide 24 mmol/L (22-29) 07/13/20 04:21 Anion Gap 13 (12-20) 07/13/20 04:21 BUN 7 mg/dL (9-16) L 07/13/20 04:21 Creatinine 0.56 mg/dL (0.5-1.4) 07/13/20 04:21 Estim Creat Clear Calc 118.7 07/13/20 04:21 Estimated GFR > 60 07/13/20 04:21 Random Glucose 86 mg/dL (60-115) 07/13/20 04:21 Estimat Average Glucose 91 mg/dL 07/13/20 04:21 Hemoglobin A1c % 4.8 % 07/13/20 04:21 Lactic Acid 0.8 mmol/L (0.5-2.0) 07/12/20 03:05 Calcium 8.3 mg/dL (8.4-10.2) L D 07/13/20 04:21 Magnesium 2.1 mg/dL (1.6-2.6) 07/12/20 03:05 Total Bilirubin 0.8 mg/dL (0.0-1.0) 07/12/20 03:05 Direct Bilirubin 0.3 mg/dL (0.0-0.5) 07/12/20 03:05 AST 13 U/L (5-31) 07/12/20 03:05 ALT 11 U/L (0-31) 07/12/20 03:05 Alkaline Phosphatase 94 U/L (39-117) 07/12/20 03:05 Total Protein 8.1 g/dL (6.5-8.0) H 07/12/20 03:05 Albumin 4.8 g/dL (3.5-5.0) 07/12/20 03:05 Lipase 7 U/L (8-78) L 07/12/20 03:05 Urine Color YELLOW 07/11/20 23:53 Urine Appearance HAZY 07/11/20 23:53 Urine pH 7.0 (5.0-8.0) 07/11/20 23:53 Ur Specific [place] 1.020 (1.005-1.025) 07/11/20 23:53 Urine Protein TRACE MG/DL (NEG-TRACE) 07/11/20 23:53 Urine Glucose (UA) NEG MG/DL (NEG) 07/11/20 23:53 Urine Ketones >=80 MG/DL (NEG) 07/11/20 23:53 Urine Blood 3+ (NEG) H 07/11/20 23:53 Urine Nitrite POS (NEG) H 07/11/20 23:53 Ur Leukocyte Esterase TRACE (NEG) H 07/11/20 23:53 Urine RBC 10-14 /HPF (0) H 07/11/20 23:53 Urine WBC 10-14 /HPF (0-4) H 07/11/20 23:53 Ur Squamous Epith Cells 1+ /LPF 07/11/20 23:53 Urine Bacteria 4+ /LPF 07/11/20 23:53 Urine Mucus 1+ /LPF 07/11/20 23:53 Urine Test NEGATIVE (NEGATIVE) 07/11/20 23:53 COVID-19 (KASH) Negative (Negative) 07/12/20 03:06 COVID-19 Clin Com See Note 07/12/20 03:06 Impressions Abdomen Ultrasound 07/12/20 02:03 IMPRESSION: No acute findings identified. Left renal calculi without hydronephrosis. Discharge Plan Discharge Patient Disposition: Home, Self-Care Discharge Diagnosis: sepsis due to kidney infection migraines Referrals: Lucy Sanchez MD [Physician] - 1 Week Discharge Medications: New sumatriptan succinate 50 mg Tablet 50 mg PO DAILY MRX1 PRN (Reason: Migraine Headache) Qty: 12 RF: 0 cefdinir 300 mg capsule 300 mg PO BID Qty: 14 RF: 0 No Action No Known Home Meds RF: 0 Discharge Orders: Discharge Order (Routine); Ordered 07/14/20 Ordered By: Alvarez Robles Diet: advance to usual diet Activity on Discharge: As tolerated Stand Alone Forms: Patient Portal Discharge page, Work/School Release Care Plan Goals: resolution of kidney infection treatment of migraines Health Concerns: sepsis from kidney infection migraines Plan of Treatment: take cefdinir (antibiotic) 300 mg twice daily for 7 days take sumatriptan (migraine medication) 50 mg once daily as needed at onset of migraine headache; identify and avoid triggers follow up with primary care doctor within 1 week as above Assessment: as above Patient Instructions: Migraine Headache (ED), Kidney Infection (DC)
[2020-07-14] MEDS: cefTRIAXone sodium 1 GM in 0.9 % Sodium Chloride 50 ML IV (12:17)
== END 2020-07-14 13:08 | disposition home or self-care (01) | DRG 720 ==
LOC: HO.ED 07-12 04:17 → HO.EDOVER 07-12 05:06 → HO.S3 07-12 05:26
PROVIDERS: Admitting Provider Internal Medicine; Emergency Provider Emergency Medicine; PCP Internal Medicine; Visit Provider Family Medicine
DX: A41.9 Sepsis, unspecified organism (principal); N10 Acute pyelonephritis; D72.829 Elevated white blood cell count, unspecified; G43.909 Migraine, unspecified, not intractable, without status migrainosus; N20.0 Calculus of kidney; Z79.899 Other long term (current) drug therapy
CPT/HCPCS: 36415; 76700; 80048; 80076; 81001; 81025; 83036; 83605; 83690; 83735; 85025; 87040; 87086; 87635; 96365; 96375; 99285; J0696; J1885; J2405